=== PATIENT | male | born 1970 | race Caucasian/White ===

== ENCOUNTER 2022-06-25 18:59 | Emergency (ER) | payer BC ==
[~2022-06-25] VITALS: Ht 170.2 cm; Wt 86.2 kg
[2022-06-25 19:42] VITALS: BP_SYST 143
--- NOTE | 2022-06-25 19:45 | NUR ---
Patient triaged and placed in waiting room. VS checked and patient appears in no acute distress at this time. Accompanied by family, awaiting available bed, and MD notified of need for MSE.
[2022-06-25 20:22] LABS: BILIRUBIN,URINE NEGATIVE (NEGATIVE); BLOOD, URINE NEGATIVE (NEGATIVE); CLARITY/URINE CLEAR (CLEAR); COLOR,URINE YELLOW (YELLOW); GLUCOSE,URINE NEGATIVE (NEGATIVE); KETONES,URINE NEGATIVE (NEGATIVE); LEUKOCYTE ESTERASE ,URINE NEGATIVE (NEGATIVE); NITRITE, URINE NEGATIVE (NEGATIVE); PH,URINE 6.5 (5.0-8.0); PROTEIN URINE NEGATIVE (NEGATIVE)
[2022-06-25 20:45] LABS: BASOPHILS # (AUTO) 0.1 K/uL (0.0-0.2); BASOPHILS % (AUTO) 0.7 % (0.0-2.0); EOSINOPHILS # (AUTO) 0.2 K/uL (0.0-0.4); EOSINOPHILS % (AUTO) 1.3 % (0.0-4.0); HEMATOCRIT 47.2 % (36-54); HEMOGLOBIN 15.8 g/dL (14.0-18.0); LYMPHOCYTES # (AUTO) 1.5 K/uL (1.0-5.5); LYMPHOCYTES % (AUTO) 12.6 % (20.5-51.5); MEAN CORPUSCULAR HEMOGLOBIN 30 pg (27-31); MEAN CORPUSCULAR HGB CONC 33 % (32-36); MEAN CORPUSCULAR VOLUME 90 fL (79.0-98.0); MONOCYTES # (AUTO) 0.9 K/uL (0.0-1.0); MONOCYTES % (AUTO) 7.9 % (1.7-9.3); NEUTROPHILS # (AUTO) 9.2 K/uL (1.8-7.7); NEUTROPHILS % (AUTO) 77.5 % (40.0-70.0); PLATELET COUNT (AUTO) 151 K/uL (130-430); RED BLOOD CELL COUNT(AUTO) 5.23 MIL/uL (4.2-6.2); RED CELL DISTRIBUTION WIDTH 12.7 % (9.0-15.0); WHITE BLOOD COUNT (AUTO) 11.9 K/uL (4.8-10.8)
[2022-06-25 21:04] LABS: CALCIUM 9.9 mg/dL (8.4-11.0); CREATININE 1.07 mg/dL (0.55-1.30)
[2022-06-25 21:08] LABS: ALBUMIN 3.9 g/dL (3.4-4.8); TOTAL BILIRUBIN 0.9 mg/dL (0.0-1.0)
[2022-06-25] MEDS ORDERED: KETOROLAC TROMETHAMINE 60 MG/2 ML VIAL IM ONE (22:00)
[2022-06-25] MEDS ORDERED: HYDROcodone/ACETAMIN 5-325 MG TAB (NORCO/ VICODIN) PO ONE (22:00)
[2022-06-25] MEDS ORDERED: HYDR-3917 PO (22:01)
--- NOTE | 2022-06-25 22:45 | NUR ---
Patient given written and verbal discharge instructions and verbalizes understanding. ER DR. BUSTAMANTE discussed with patient the results and treatment provided. Patient in stable condition. ID arm band removed. Rx of NORCO given. Patient educated on pain management and to follow up with PMD. Pain Scale 0. Opportunity for questions provided and answered. Medication side effect fact sheet provided.
[2022-06-25 22:55] VITALS: BP_SYST 143
== END 2022-06-25 22:55 | disposition home or self-care (01) ==
LOC: SED 18:59
DX: K57.92 Diverticulitis of intestine, part unspecified, without perforation or abscess without bleeding (principal); R10.32 Left lower quadrant pain; K59.00 Constipation, unspecified; Z79.899 Other long term (current) drug therapy
CPT/HCPCS: 99285; 74176; 71045; 80053; 83690; 85025; 85610; 85730; 87040; 87086; 36415; 76376; 96372; 83605; 81003; J1885

== ENCOUNTER 2023-01-13 16:33 | Emergency (ER) | payer BC ==
[~2023-01-13] VITALS: Ht 167.6 cm; Wt 88.5 kg
[~2023-01-13 16:33] MED LIST: HYDR-3917 PO
[2023-01-13 17:04] VITALS: BP_SYST 110; PULSE 97; RESP 16; O2SAT 98
[2023-01-13 20:33] LABS: CALCIUM 9.2 mg/dL (8.4-11.0); CREATININE 1.12 mg/dL (0.55-1.30)
[2023-01-13 20:37] LABS: ALBUMIN 4.1 g/dL (3.4-4.8); TOTAL BILIRUBIN 0.8 mg/dL (0.0-1.0)
[2023-01-13 20:46] LABS: BASOPHILS # (AUTO) 0.1 K/uL (0.0-0.2); EOSINOPHILS # (AUTO) 0.1 K/uL (0.0-0.4); WHITE BLOOD COUNT (AUTO) 12.6 K/uL (4.8-10.8)
[2023-01-13 20:47] LABS: PROTHROMBIN TIME 10.4 SECS (9.5-12.5)
[2023-01-13 20:53] LABS: BASOPHILS % (AUTO) 0.4 % (0.0-2.0); EOSINOPHILS % (AUTO) 0.6 % (0.0-4.0); HEMATOCRIT 47.6 % (36-54); HEMOGLOBIN 15.6 g/dL (14.0-18.0); LYMPHOCYTES % (AUTO) 7.7 % (20.5-51.5); MEAN CORPUSCULAR HEMOGLOBIN 30 pg (27-31); MEAN CORPUSCULAR HGB CONC 33 % (32-36); MEAN CORPUSCULAR VOLUME 91 fL (79.0-98.0); MONOCYTES # (AUTO) 0.6 K/uL (0.0-1.0); MONOCYTES % (AUTO) 4.6 % (1.7-9.3); NEUTROPHILS % (AUTO) 86.7 % (40.0-70.0); PLATELET COUNT (AUTO) 182 K/uL (130-430); RED BLOOD CELL COUNT(AUTO) 5.21 MIL/uL (4.2-6.2)
--- NOTE | 2023-01-13 21:30 | NUR ---
Patient to ER bed 5 to gown for evaluation. Side rails up.
--- NOTE | 2023-01-13 21:50 | NUR ---
Dr. Lundberg bedside for pt eval
--- NOTE | 2023-01-13 21:55 | NUR ---
Pt with a hx of diverticulosis who presents to the ED for 10 episodes of bloody stools today with associated left lower quadrant abdominal pain. The first 2 stools were dark red blood mixed into stool and the rest were only dark red blood with no stool. No nausea or vomiting and no, fever chills, and hematemesis. Bowel movements have been normal until than today. Pt had a colonoscopy in August in which 4 polyps removed. One of the polyps were abnormal and found to be a tubular adenoma, they recommended a colonoscopy within 1 year. Denies history of hemorrhoids, peptic ulcers or heavy NSAID use. He has never required a blood transfusion. 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
--- NOTE | 2023-01-13 22:05 | NUR ---
Dr. Lundberg bedside for Rectal Exam
[2023-01-13 22:30] VITALS: BP_SYST 110; PULSE 97; RESP 16; TEMP 98.2; O2SAT 98
--- NOTE | 2023-01-13 22:30 | NUR ---
Patient given written and verbal discharge instructions and verbalizes understanding. ER MD discussed with patient the results and treatment provided. Patient in stable condition. ID arm band removed. IV catheter removed intact and dressing applied. Patient educated on pain management and to follow up with PMD. Pain Scale 0/10 Opportunity for questions provided and answered. Medication side effect fact sheet provided.
== END 2023-01-13 22:30 | disposition home or self-care (01) ==
LOC: SED 16:33
DX: D64.9 Anemia, unspecified (principal); K62.5 Hemorrhage of anus and rectum; K21.9 Gastro-esophageal reflux disease without esophagitis; R10.32 Left lower quadrant pain; Z79.899 Other long term (current) drug therapy
CPT/HCPCS: 36415; 76376; 80053; 83690; 85025; 85610-TC; 85730-TC; 99284